=== PATIENT | female | born 1995 | race Hispanic/Latino ===

== ENCOUNTER 2025-09-24 21:34 | Emergency (ER) | payer SELFPAY | END 2025-09-24 23:35 | disposition home or self-care (01) | LOC: ERS 21:34 | DX: S29.012A Strain of muscle and tendon of back wall of thorax, initial encounter (principal); V79.9XXA Bus occupant (driver) (passenger) injured in unspecified traffic accident, initial encounter | CPT/HCPCS: 99283 ==